=== PATIENT | female | born 1965 | race Caucasian/White ===

== ENCOUNTER → 2016-06-27 | Outpatient (CLI) | payer OTHER ==
[~2016-06-27] MED LIST: CALCIUM600 MG PO; FLONASEALLERGY NS; LOW OGESTREL PO; TYLENOL PM EXTR1 TA1 PO; ZESTRIL 10MG10 MG PO; ZYRTEC-D 5 MG-11 TER PO
== END ==
LOC: MC.RAD 11:38
DX: Z12.31 Encounter for screening mammogram for malignant neoplasm of breast (principal)

== ENCOUNTER → 2017-09-17 | Outpatient (CLI) | payer OTHER | LOC: MC.RAD 06-30 07:40 | DX: Z12.31 Encounter for screening mammogram for malignant neoplasm of breast (principal) ==

== ENCOUNTER → 2018-09-25 | Outpatient (CLI) | payer OTHER | LOC: MC.RAD 11:05 | DX: Z12.31 Encounter for screening mammogram for malignant neoplasm of breast (principal) ==

== ENCOUNTER → 2019-09-28 | Outpatient (CLI) | payer OTHER | LOC: MC.RAD 12:53 | DX: Z12.31 Encounter for screening mammogram for malignant neoplasm of breast (principal) ==

== ENCOUNTER → 2020-11-10 | Outpatient (CLI) | payer OTHER | LOC: COL.LAB 12:16 | DX: R50.9 Fever, unspecified (principal); R19.7 Diarrhea, unspecified ==

== ENCOUNTER → 2021-04-11 | Outpatient (CLI) | payer OTHER | LOC: MC.RAD 02-20 08:15 | DX: Z12.31 Encounter for screening mammogram for malignant neoplasm of breast (principal) ==

== ENCOUNTER → 2023-04-24 | Outpatient (CLI) | payer OTHER | LOC: MC.RAD 13:28 → COL.RAD 13:45 | DX: Z12.31 Encounter for screening mammogram for malignant neoplasm of breast (principal) ==